=== PATIENT | male | born 1950 | race Caucasian/White ===

== ENCOUNTER 2017-05-13 09:57 | Day surgery (SDC) | payer OTHER ==
[2017-05-09 16:20] VITALS: BMI 33.5
[~2017-05-13 09:57] MED LIST: LACTATED RINGERS 1,000 ML IV SCH; LIDOCAINE 1% 20 ML VIAL (10MG/ML) FOR IV START INTRADERMA PRN
[2017-05-13 10:40] VITALS: RESP 16; TEMP 98.1
[2017-05-13] MEDS ORDERED: LIDOCAINE 1% INJ 10MG/ML (20 ML MDV) ONE (12:29)
[2017-05-13] MEDS ORDERED: fentaNYL (PF) 50 MCG/ML 2 ML AMP ONE (12:29)
[2017-05-13] MEDS ORDERED: PROPOFOL 10 MG/ML 20 ML VIAL IV ONE (12:29)
--- NOTE | 2017-05-13 12:37 | P.GSHP ---
History of Present Illness H&P Date: 05/13/17 Chief Complaint: Screening colonoscopy This is a 66-year-old male for from Dr. Piper motley. Patient rents today for screening colonoscopy. - Constitutional Constitutional: Reports as per HPI Past Medical History Past Medical History: No Reported History History of Any Multi-Drug Resistant Organisms: None Reported Past Surgical History: No Surgical Hx Reported Past Anesthesia/Blood Transfusion Reactions: No Reported Reaction Additional Past Anesthesia/Blood Transfusion Reaction / Comment(s): no surgery or anesthesia Smoking Status: Current every day smoker - Past Family History Brother(s) Family Medical History: Cancer Medications and Allergies Home Medications Medication Instructions Recorded Confirmed Type No Known Home Medications [No 05/09/17 05/09/17 History Known Home Medications] Allergies Allergy/AdvReac Type Severity Reaction Status Date / Time Penicillins AdvReac Rash/Hives Verified 05/09/17 16:07 Surgical - Exam Vital Signs Temp Pulse Resp BP Pulse Ox 98.1 F 80 16 120/79 96 05/13/17 10:39 05/13/17 10:39 05/13/17 10:39 05/13/17 10:39 05/13/17 10:39 - General well developed, no distress - Eyes PERRL - ENT normal pinna - Neck no masses - Respiratory normal expansion - Cardiovascular Rhythm: regular - Abdomen Abdomen: soft, non tender Assessment and Plan Plan: We will perform screening colonoscopy.
--- NOTE | 2017-05-13 12:52 | P.OP ---
Date of Procedure: 05/13/17 Preoperative Diagnosis: Screening colonoscopy Postoperative Diagnosis: colon polyps Procedure(s) Performed: Colonoscopy Implants: Anesthesia: MAC Surgeon: Harsha Johnson Pathology: other (Right colon polyp, sigmoid colon polyp) Condition: stable Disposition: PACU Indications for Procedure: Operative Findings: Description of Procedure: Patient's placed on the endoscopy table in the lateral position. He received IV sedation. Digital rectal exam was performed which revealed no abnormalities. The prostate was symmetrical without nodules. The flexible colonoscope was then placed patient anus and passed throughout the entire colon. The ileocecal valve was visualized. In the cecum there was a small polyp seen this removed the forcep. Scope was then withdrawn and the remainder of the ascending colon, transverse colon and descending colon appeared normal. In the sigmoid colon there was a small sessile polyp was removed the forcep. Scope was then brought back the rectum and this appeared normal. Scope was withdrawn for patient.
[2017-05-13 13:25] VITALS: BP 132/89; PULSE 68
== END 2017-05-13 13:33 | disposition home or self-care (01) ==
LOC: ORWHC2ENDO 09:57
PROVIDERS: ATTEND Surgery
DX: Z12.11 Encounter for screening for malignant neoplasm of colon (principal); D12.0 Benign neoplasm of cecum; K63.5 Polyp of colon; F17.200 Nicotine dependence, unspecified, uncomplicated; Z88.0 Allergy status to penicillin
CPT/HCPCS: 88305; 45380; J2001; J3010; J2704